=== PATIENT | female | born 1965 | race African-American/Black ===

== ENCOUNTER 2016-12-24 12:51 | Emergency (ER) ==
[2016-12-24 13:14] VITALS: BP 148/98
[2016-12-24 13:29] LABS: URINE CULTURE PL NEEDED? NO; URINE SOURCE CLEAN CATCH
[2016-12-24 13:39] LABS: BILIRUBIN URINE NEGATIVE (NEGATIVE); BLOOD URINE NEGATIVE (NEGATIVE); CLARITY CLEAR (CLEAR); COLOR YELLOW; LEUKOCYTES URINE NEGATIVE (NEGATIVE); NITRITE URINE NEGATIVE (NEGATIVE); PROTEIN URINE TRACE mg/dL (NEGATIVE); SP GRAVITY URINE 1.015; UROBILINOGEN URINE NORMAL
[2016-12-24 14:14] LABS: URINE EPITHELIAL CELLS <10 /HPF (<10)
--- NOTE | 2016-12-24 15:38 | PROVIDER DOCUMENTATION ---
HPI-Female /OB/Breast <Ana Magdaleno - Last Filed: 12/24/16 15:38> - General Source: reports: patient - History of Present Illness-Female /OB Does patient report she is ?: No Location of complaint: reports: vaginal Radiation: reports: none Quality of Pain: reports: burning, other (itching) Onset/Duration: reports: other (2 weeks) Timing: reports: still present Context/Activities at Onset: reports: none Vaginal Symptoms: reports: discharge (clear/white), itching Vaginal Bleeding Amount: None Urinary Symptoms: reports: no symptoms Sexual intercourse history: reports: Single Partner () Modifying Factors: improves with: nothing Associated Symptoms: reports: denies symptoms Similar Symptoms Previously?: Yes Recently seen or treated by another doctor?: No <Tisha Edward - Last Filed: 12/24/16 15:59> - General Chief Complaint: Female Stated Complaint: FEMALE PROBLEMS Time Seen by Provider: 12/24/16 15:40 Allergies/Adverse Reactions: Patient Allergies Allergy/AdvReac Type Severity Reaction Status Date / Time No Known Allergies Allergy Verified 12/24/16 13:13 Home Medications: Home Medication List Medication Instructions Recorded Confirmed Last Taken Type Fluconazole [Diflucan] 150 mg PO DAILY #2 tablet 12/24/16 Unknown Rx - History of Present Illness-Female /OB Nature of Presenting Problem: 51 yo female presents to ER with c/o itching, burning, clear white discharge, and odor for the past 2 weeks. She states that she is prone to yeast infections. She has not had any recent hx of abx use. She does not take baths or douche. (Tisha Edward) Review of Systems - Adult - REVIEW OF SYSTEMS - ADULT Constitutional: reports: no symptoms reported Eyes: reports: no symptoms reported Ears, Nose, Mouth & Throat: reports: no symptoms reported Cardiovascular: reports: no symptoms reported Respiratory: reports: no symptoms reported Gastrointestinal: reports: no symptoms reported Genitourinary: reports: see HPI, discharge Musculoskeletal: reports: no symptoms reported Integumentary: reports: no symptoms reported Neurological: reports: no symptoms reported Psychiatric: reports: no symptoms reported Endocrine: reports: no symptoms reported Hematologic/Lymphatic: reports: no symptoms reported Allergic/Immunologic: reports: no symptoms reported All Other Systems: Reviewed and Negative <Tisha Edward - Last Filed: 12/24/16 15:59> Past History - Adult - PAST MEDICAL HISTORY-ADULT Review of Records: reports: Old Records Reviewed, Nursing Assessment Review, Medications Reviewed, Social history reviewed & non-contributory. Cardiovascular: reports: HTN - PRIOR SURGERIES/PROCEDURES Surgical/Procedure History: reports: , joint replacement (total knee replacement) - IMMUNIZATION STATUS Childhood Immunizations: See Nurse Assessment Flu Vaccine: See Nurse Assessment - SOCIAL HISTORY Smoking: cigarettes, less than 1 pack/day (1/2 ppd) Provider spent 3-5 mins advising pt. on dangers of tobacco.: Discussed manners to quit use, and f/u contacts for add'l counseling. Substance Use: none/never, denies Alcohol Use Frequency: never Living Situation: family <Tisha Edward Philippe - Last Filed: 12/24/16 15:59> Physical Exam-General - PHYSICAL EXAM-ADULT Initial Vital Signs Reviewed: Yes - CONSTITUTIONAL General Appearance: appears well, alert, no apparent distress - EYES Eyes: PERRL/EOMI - HEAD, EARS, NOSE, MOUTH & THROAT HENMT: normocephalic/atraumatic - RESPIRATORY Respiratory: no respiratory distress - GENITOURINARY Female Genitalia/Pelvic Exam: deferred - MUSCULOSKELETAL Back Exam: normal inspection Extremity: non-tender, normal gait - SKIN Integumentary: normal color, normal turgor, warm/dry - NEUROLOGIC Neurologic: grossly normal - PSYCHIATRIC Psych/Mental Status: normal mood/affect, normal thought content, normal thought process, oriented x 3 <Tisha Edward - Last Filed: 12/24/16 15:59> Progress <Ana Magdaleno - Last Filed: 12/24/16 15:38> <CheyanneTisha Kenn - Last Filed: 12/24/16 15:59> - PLAN OF CARE/RESULTS Progress/Plan/Lab Results: 1545-Discussed dx/tx/discharge and 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 Laboratory Tests 12/24/16 13:12 Urine Source CLEAN CATCH Urine Color YELLOW Urine Clarity CLEAR Urine pH 5.0 Ur Specific [place] 1.015 Urine Protein TRACE A Urine Ketones NEGATIVE Urine Blood NEGATIVE Urine Nitrite NEGATIVE Urine Bilirubin NEGATIVE Urine Urobilinogen NORMAL Urine Microscopic RBC Not Reportable Urine WBC NEGATIVE Ur Epithelial Cells <10 Urine Bacteria 1+ Urine Glucose 3+(500 mg/dL) A Orders Category Date Time Status URINALYSIS PL W/POSS RFLX CULT [URINALYSIS] Stat Lab 12/24/16 13:12 Completed Vital Signs - 24 hr 12/24/16 13:11 Temperature 98 F Pulse Rate 101 H Respiratory 19 Rate Blood Pressure 148/98 (iTsha Edward.) Departure <Ana Magdaleno - Last Filed: 12/24/16 15:38> - Departure Time of Disposition Order: 15:50 Certified Medical Emergency: Emergent <Tisha Edward. - Last Filed: 12/24/16 15:59> - Departure DIAGNOSIS: Yeast infection, Candidal vulvitis, Vaginal itching Disposition: HOME 01 Condition: Good Additional Instructions: Follow up with pro shop attendant. Take medications as prescribed. Eat plain yogurt daily. Wear cotton underwear only. Use an over the counter yeast cream to soothe area. Sleep without underwear. ED Follow Up Instructions: You have been treated by a care provider in the Emergency Department. These instructions are being provided to you so you can have an understanding of how to care for yourself upon discharge. Upon discharge from the Emergency Department, you are responsible for making arrangements for follow-up care by a physician of your choice. Take all prescribed medications as directed. Return to the Emergency Department immediately for any new or worsening symptoms. You may call the Physician Referral phone number at [phone] to obtain a list of Physicians who are taking new patients. Prescriptions: Fluconazole [Diflucan] 150 mg PO DAILY #2 tablet Referrals: Yokasta Ortiz MD [Primary Care Provider] - Attestation - Scribe Verification/Attestation Scribe:: Ana Magdaleno Scribe documention review:: This chart was documented by a scribe and accurately reflects the service the provider performed and the decisions made by the provider. <Ana Magdaleno - Last Filed: 12/24/16 15:38> - Physician/ [place] Attestation Patient care was provided by Advanced Practice Provider:: Yes Advanced Practice Provider:: Tisha Edward Advanced Practice Provider documentation review:: The Mid-level provider documentation, treatment plan and medical decision making was reviewed by the physician who agrees with all treatment and medical decision making by the P. <Tisha Edward - Last Filed: 12/24/16 15:59> Physician Attestation - Physician Attestation I, the provider, attest to the following statement:: Tisha Edward Physician documentation Attestation:: This documentation recorded by the scribe accurately reflects the service I personally performed and the decisions made by me. <Tisha Edward - Last Filed: 12/24/16 15:59>
== END 2016-12-24 16:04 | disposition home or self-care (01) ==
LOC: P.ED 12:51
DX: B37.3 Candidiasis of vulva and vagina (principal); L29.2 Pruritus vulvae; N89.8 Other specified noninflammatory disorders of vagina; I10 Essential (primary) hypertension; Z96.659 Presence of unspecified artificial knee joint; F17.210 Nicotine dependence, cigarettes, uncomplicated; Z71.6 Tobacco abuse counseling
CPT/HCPCS: 81001; 99283